=== PATIENT | female | born 1965 | race African-American/Black ===

== ENCOUNTER 2021-04-27 17:51 | Emergency (ER) | payer BC, MEDICAID ==
[~2021-04-27] VITALS: Ht 167.6 cm; Wt 110.0 kg
[2021-04-27] MEDS ORDERED: KETOROLAC 30MG/ML VIAL IV STA (18:33)
[2021-04-27] MEDS ORDERED: ONDANSETRON HCL 4MG/2ML INJ IV STA (18:33)
[2021-04-27 20:04] LABS: BASOPHILS % 0.6 % (0.0-2.0); EOSINOPHILS % 2.7 % (0.0-5.0); HEMOGLOBIN. 13.1 g/dL (12.0-16.0); LYMPHOCYTES % 33.4 % (20.0-50.0); MEAN CORPUSCULAR HEMOGLOBIN 28.6 pg (28.0-32.0); MEAN CORPUSCULAR VOLUME 87.3 fL (81.0-99.0); MEAN PLATELET VOLUME 8.5 fl (7.4-10.4); MONOCYTES % 6.8 % (2.0-8.0); NEUTROPHILS % 56.5 % (40.0-76.0); PLATELET 290 x1000/uL (130-400); RED BLOOD CELL COUNT 4.59 mill/uL (4.2-5.4); RED CELL DISTRIBUTION WIDTH 14.8 % (11.6-14.6)
[2021-04-27 20:11] LABS: CHLORIDE 108 mEq/L (98-107)
[2021-04-27] MEDS ORDERED: IBUP-2029 MT (21:22)
[2021-04-27 23:30] VITALS: BP 172/82
== END 2021-04-28 00:48 | disposition home or self-care (01) ==
LOC: ER 17:51
DX: R51.9 Headache, unspecified (principal); K21.9 Gastro-esophageal reflux disease without esophagitis; I10 Essential (primary) hypertension; E16.2 Hypoglycemia, unspecified
CPT/HCPCS: 36415; 70450; 80053; 85025; 93005; 96374; 96375; 99285; J1885; J2405